=== PATIENT | female | born 1950 | race Caucasian/White ===

== ENCOUNTER 2024-04-27 21:18 | Emergency (ER) | payer MEDICARE, OTHER | END 2024-04-27 23:34 | disposition left against medical advice (07) | LOC: ER 21:26 | DX: R51.9 Headache, unspecified (principal); R03.0 Elevated blood-pressure reading, without diagnosis of hypertension; Z53.21 Procedure and treatment not carried out due to patient leaving prior to being seen by health care provider ==

== ENCOUNTER 2024-05-08 07:55 | Emergency (ER) | payer MEDICARE, OTHER ==
[~2024-05-08] VITALS: Ht 165.1 cm; Wt 72.6 kg
[2024-05-08 08:05] VITALS: TEMP 98.1
[2024-05-08] MEDS: IV NS 0.9% 1,000 ML BAG IV ONE (08:30)
[2024-05-08 08:49] LABS: BASOPHILS % (AUTO) 0.3 % (0.0-2.0); EOSINOPHILS # (AUTO) 0.1 K/uL (0.0-0.7); EOSINOPHILS % (AUTO) 1.6 % (0.0-6.0); HEMATOCRIT 34 % (33-45); HEMOGLOBIN 11.4 g/dL (11.5-14.8); LYMPHOCYTES # (AUTO) 1.6 K/uL (0.8-4.8); LYMPHOCYTES % (AUTO) 29.8 % (20.0-44.0); MEAN CORPUSCULAR HEMOGLOBIN 28 PG (26.0-33.0); MEAN CORPUSCULAR HGB CONC 33 g/dl (31.0-36.0); MEAN CORPUSCULAR VOLUME 84 fL (82-100); MONOCYTES # (AUTO) 0.4 K/uL (0.1-1.30); MONOCYTES % (AUTO) 7.3 % (2.0-12.0); NEUTROPHILS # (AUTO) 3.2 K/uL (1.8-8.9); PLATELET COUNT (AUTO) 180 K/uL (150-450); RED BLOOD CELL COUNT(AUTO) 4.04 MIL/uL (4.0-5.2); RED CELL DISTRIBUTION WIDTH 14.5 % (11.5-15.0); WHITE BLOOD COUNT (AUTO) 5.2 K/uL (4.3-11.0)
[2024-05-08 09:02] LABS: CALCIUM, SERUM 9.2 mg/dL (8.5-10.1); CARBON DIOXIDE 29 mmol/L (21-32); CHLORIDE 106 mmol/L (98-107); CREATININE 0.7 mg/dL (0.6-1.3); GLUCOSE 154 mg/dL (74-106); POTASSIUM 3.8 mmol/L (3.5-5.1); SODIUM SERUM 143 mmol/L (136-145); UREA NITROGEN, BLOOD 8 mg/dL (7-18)
[2024-05-08 09:11] LABS: ALANINE AMINOTRANSFERASE 31 U/L (12-78); ALBUMIN 3.9 g/dL (3.4-5.0); ALKALINE PHOSPHATASE 71 U/L (46-116); ASPARTATE AMINOTRANSFERASE 20 U/L (15-37); BILIRUBIN,DIRECT 0.1 mg/dL (0.0-0.2); BILIRUBIN,TOTAL 0.3 mg/dL (0.2-1.0); LIPASE 36 U/L (16-77); TOTAL PROTEIN, SERUM 7.7 g/dL (6.4-8.2)
[2024-05-08] MEDS ORDERED: LIDOCAINE VISCOUS 2% UD 15 ML UDC ONE (09:13)
[2024-05-08] MEDS ORDERED: ONDANSETRON HCL/PF 4 MG/2 ML VIAL ONE (09:13)
[2024-05-08] MEDS ORDERED: MORPHINE SULFATE INJ 4 MG/ML DISP.SYRIN ONE (09:13)
[2024-05-08] MEDS ORDERED: MAG HYDROX/AL HYDROX/SIMETH 30 ML UDC ONE (09:13)
[2024-05-08] MEDS ORDERED: FAMOTIDINE/PF INJ 20 MG/2 ML VIAL IV ONE (09:14)
[2024-05-08] MEDS: FAMOTIDINE/PF INJ 20 MG/2 ML VIAL IV ONE (09:30)
[2024-05-08] MEDS: MAG HYDROX/AL HYDROX/SIMETH 30 ML UDC PO ONE (09:30)
[2024-05-08] MEDS: ONDANSETRON HCL/PF 4 MG/2 ML VIAL IVP ONE (09:30)
[2024-05-08] MEDS: MORPHINE SULFATE INJ 2 MG/ML DISP.SYRIN IV ONE (09:30)
[2024-05-08] MEDS: LIDOCAINE VISCOUS 2% UD 15 ML UDC MM ONE (09:30)
[2024-05-08 10:29] LABS: APPEARANCE,URINE CLEAR (CLEAR); BILIRUBIN,URINE NEGATIVE (NEGATIVE); BLOOD, URINE NEGATIVE Ery/uL (NEGATIVE); COLOR,URINE YELLOW (YELLOW); KETONES,URINE NEGATIVE (NEGATIVE); LEUKOCYTE ESTERASE ,URINE NEGATIVE (NEGATIVE); NITRITE, URINE NEGATIVE (NEGATIVE); PROTEIN,URINE NEGATIVE (NEGATIVE); UGLUCOSE NEGATIVE (NEGATIVE); UROBILINOGEN,URINE 0.2 EU/dL (0.2)
[2024-05-08] MEDS ORDERED: ONDA4TAB5 PO (12:47)
[2024-05-08] MEDS ORDERED: FAMO-131 PO (12:47)
[2024-05-08 13:58] VITALS: BP 108/65; O2SAT 99
== END 2024-05-08 13:40 | disposition home or self-care (01) ==
LOC: ER 08:01
DX: K80.20 Calculus of gallbladder without cholecystitis without obstruction (principal); R10.13 Epigastric pain; R10.11 Right upper quadrant pain; R11.0 Nausea; Z87.19 Personal history of other diseases of the digestive system; Z88.6 Allergy status to analgesic agent; Z88.8 Allergy status to other drugs, medicaments and biological substances
CPT/HCPCS: 99285; 74176; 96374; 76705; 96375; 96361; 93005; 85025; 80048; 83690; 80076; 81003; 36415; J2270; J3490; J2405; J7030

== ENCOUNTER 2024-06-02 18:45 | Emergency (ER) | payer MEDICARE, OTHER ==
[~2024-06-02] VITALS: Ht 162.6 cm; Wt 72.6 kg
[~2024-06-02 18:45] MED LIST: FAMO-131 PO; ONDA4TAB5 PO
[2024-06-02 19:57] LABS: BASOPHILS % (AUTO) 0.2 % (0.0-2.0); EOSINOPHILS # (AUTO) 0.1 K/uL (0.0-0.7); HEMATOCRIT 34 % (33-45); HEMOGLOBIN 11.6 g/dL (11.5-14.8); LYMPHOCYTES # (AUTO) 2.5 K/uL (0.8-4.8); LYMPHOCYTES % (AUTO) 33.3 % (20.0-44.0); MEAN CORPUSCULAR HEMOGLOBIN 29 PG (26.0-33.0); MEAN CORPUSCULAR HGB CONC 34 g/dl (31.0-36.0); MEAN CORPUSCULAR VOLUME 85 fL (82-100); MONOCYTES # (AUTO) 0.6 K/uL (0.1-1.30); MONOCYTES % (AUTO) 7.8 % (2.0-12.0); NEUTROPHILS # (AUTO) 4.3 K/uL (1.8-8.9); NEUTROPHILS % (AUTO) 57.7 % (43.0-81.0); PLATELET COUNT (AUTO) 201 K/uL (150-450); RED BLOOD CELL COUNT(AUTO) 4.01 MIL/uL (4.0-5.2); RED CELL DISTRIBUTION WIDTH 14.2 % (11.5-15.0); WHITE BLOOD COUNT (AUTO) 7.5 K/uL (4.3-11.0)
[2024-06-02 20:09] LABS: CALCIUM, SERUM 9.7 mg/dL (8.5-10.1); CARBON DIOXIDE 31 mmol/L (21-32); CHLORIDE 102 mmol/L (98-107); CREATININE 0.7 mg/dL (0.6-1.3); GLUCOSE 100 mg/dL (74-106); SODIUM SERUM 139 mmol/L (136-145); UREA NITROGEN, BLOOD 8 mg/dL (7-18)
[2024-06-02 20:14] LABS: ALANINE AMINOTRANSFERASE 29 U/L (12-78); ALBUMIN 4.3 g/dL (3.4-5.0); ALKALINE PHOSPHATASE 79 U/L (46-116); ASPARTATE AMINOTRANSFERASE 19 U/L (15-37); BILIRUBIN,DIRECT 0.1 mg/dL (0.0-0.2); BILIRUBIN,TOTAL 0.3 mg/dL (0.2-1.0); LIPASE 58 U/L (16-77); TOTAL PROTEIN, SERUM 8.1 g/dL (6.4-8.2)
[2024-06-02] MEDS ORDERED: HYDR-4303 PO (20:38)
[2024-06-02] MEDS ORDERED: MORPHINE SULFATE INJ 4 MG/ML DISP.SYRIN ONE (20:44)
[2024-06-02] MEDS: MORPHINE SULFATE INJ 2 MG/ML DISP.SYRIN IV ONE (20:51)
[2024-06-02] MEDS: ONDANSETRON HCL/PF 4 MG/2 ML VIAL IV ONE (20:52)
[2024-06-02 21:01] LABS: APPEARANCE,URINE Clear (CLEAR); BILIRUBIN,URINE Negative (NEGATIVE); BLOOD, URINE Negative Ery/uL (NEGATIVE); COLOR,URINE LIGHT YELLOW (YELLOW); KETONES,URINE Negative (NEGATIVE); LEUKOCYTE ESTERASE ,URINE Negative (NEGATIVE); NITRITE, URINE Negative (NEGATIVE); PH,URINE 8.5 (5.0-8.0); PROTEIN,URINE Negative (NEGATIVE); UGLUCOSE Negative (NEGATIVE); UROBILINOGEN,URINE 0.2 EU/dL (0.2)
[2024-06-02 21:58] VITALS: BP 135/62; TEMP 98; O2SAT 99
== END 2024-06-02 21:58 | disposition home or self-care (01) ==
LOC: ER 18:48
DX: R10.11 Right upper quadrant pain (principal); R19.7 Diarrhea, unspecified; R11.2 Nausea with vomiting, unspecified; Z87.19 Personal history of other diseases of the digestive system; Z88.6 Allergy status to analgesic agent
CPT/HCPCS: 99285; 74176; 96374; 76705; 96375; 85025; 80048; 83690; 80076; 81003; 36415; J2270; J2405

== ENCOUNTER 2024-08-07 14:20 | Emergency (ER) | payer MEDICARE, OTHER ==
[~2024-08-07] VITALS: Ht 165.1 cm; Wt 74.8 kg
[~2024-08-07 14:20] MED LIST changes: +HYDR-4303 PO
[2024-08-07] MEDS ORDERED: METOCLOPRAMIDE HCL 10 MG/2 ML VIAL ONE (15:14)
[2024-08-07] MEDS ORDERED: PANTOPRAZOLE 40 MG VIAL ONE (15:14)
[2024-08-07] MEDS ORDERED: LACTULOSE 10 G/15 ML UDC (PYXIS) ONE (15:14)
[2024-08-07 15:28] LABS: BASOPHILS % (AUTO) 0.1 % (0.0-2.0); EOSINOPHILS % (AUTO) 0.2 % (0.0-6.0); HEMATOCRIT 33 % (33-45); HEMOGLOBIN 11.2 g/dL (11.5-14.8); LYMPHOCYTES # (AUTO) 0.6 K/uL (0.8-4.8); LYMPHOCYTES % (AUTO) 6.8 % (20.0-44.0); MEAN CORPUSCULAR HEMOGLOBIN 29 PG (26.0-33.0); MEAN CORPUSCULAR HGB CONC 34 g/dl (31.0-36.0); MEAN CORPUSCULAR VOLUME 84 fL (82-100); MONOCYTES # (AUTO) 0.8 K/uL (0.1-1.30); MONOCYTES % (AUTO) 8.3 % (2.0-12.0); NEUTROPHILS # (AUTO) 7.7 K/uL (1.8-8.9); NEUTROPHILS % (AUTO) 84.6 % (43.0-81.0); PLATELET COUNT (AUTO) 217 K/uL (150-450); RED BLOOD CELL COUNT(AUTO) 3.92 MIL/uL (4.0-5.2); RED CELL DISTRIBUTION WIDTH 13.5 % (11.5-15.0); WHITE BLOOD COUNT (AUTO) 9.1 K/uL (4.3-11.0)
[2024-08-07] MEDS: LACTULOSE 10 G/15 ML UDC (PYXIS) PO ONE (15:34)
[2024-08-07] MEDS: IV NS 0.9% 1,000 ML BAG IV ONE (15:34)
[2024-08-07] MEDS: METOCLOPRAMIDE HCL 10 MG/2 ML VIAL IV ONE (15:34)
[2024-08-07] MEDS: PANTOPRAZOLE 40 MG VIAL IV ONE (15:34)
[2024-08-07 15:37] LABS: CALCIUM, SERUM 9.6 mg/dL (8.5-10.1); CREATININE 0.7 mg/dL (0.6-1.3)
[2024-08-07 15:43] LABS: ALBUMIN 3.9 g/dL (3.4-5.0); BILIRUBIN,DIRECT 0.1 mg/dL (0.0-0.2); BILIRUBIN,TOTAL 0.3 mg/dL (0.2-1.0); TOTAL PROTEIN, SERUM 8.2 g/dL (6.4-8.2)
[2024-08-07 16:20] LABS: APPEARANCE,URINE CLEAR (CLEAR); BILIRUBIN,URINE NEGATIVE (NEGATIVE); BLOOD, URINE 1+ Ery/uL (NEGATIVE); COLOR,URINE YELLOW (YELLOW); KETONES,URINE NEGATIVE (NEGATIVE); LEUKOCYTE ESTERASE ,URINE NEGATIVE (NEGATIVE); NITRITE, URINE NEGATIVE (NEGATIVE); PROTEIN,URINE TRACE mg/dl (NEGATIVE); UGLUCOSE NEGATIVE (NEGATIVE); UROBILINOGEN,URINE 0.2 EU/dL (0.2)
[2024-08-07 16:31] LABS: BACTERIA,URINE Rare /HPF (None Seen); MUCUS,URINE Moderate /LPF (None Seen)
[2024-08-07 16:32] LABS: SQUAMOUS EPITHELIAL CELL,UR Few /HPF (None Seen)
[2024-08-07 16:33] LABS: ADD URINE CULTURE NO; RBC,URINE 0-2 /HPF (0-2); WBC,URINE 0-2 /HPF (0-3)
[2024-08-07] MEDS ORDERED: LACT10SO68 PO (16:39)
[2024-08-07 16:51] VITALS: BP 140/72; TEMP 98; O2SAT 99
== END 2024-08-07 16:56 | disposition home or self-care (01) ==
LOC: ER 14:20
DX: G89.18 Other acute postprocedural pain (principal); R10.84 Generalized abdominal pain; K59.00 Constipation, unspecified; Z87.19 Personal history of other diseases of the digestive system; Z88.6 Allergy status to analgesic agent; Z90.49 Acquired absence of other specified parts of digestive tract
CPT/HCPCS: 99285; 74176; 96374; 96361; 96375; 85025; 80048; 80076; 81001; 36415; J2765; J7030; J2470

== ENCOUNTER 2024-10-02 00:24 | Emergency (ER) | payer MEDICARE, OTHER ==
[~2024-10-02] VITALS: Ht 165.1 cm; Wt 74.8 kg
[~2024-10-02 00:24] MED LIST changes: +LACT10SO68 PO
[2024-10-02] MEDS ORDERED: ONDANSETRON HCL/PF 4 MG/2 ML VIAL ONE (02:38)
[2024-10-02] MEDS ORDERED: MORPHINE SULFATE INJ 2 MG/ML DISP.SYRIN ONE (02:38)
[2024-10-02] MEDS: MORPHINE SULFATE INJ 2 MG/ML DISP.SYRIN IV ONE (02:39)
[2024-10-02] MEDS: ONDANSETRON HCL/PF 4 MG/2 ML VIAL IVP ONE (02:39)
[2024-10-02] MEDS: IV NS 0.9% 500 ML BAG IV ONE (02:39)
[2024-10-02 02:44] LABS: BASOPHILS % (AUTO) 0.1 % (0.0-2.0); EOSINOPHILS # (AUTO) 0.1 K/uL (0.0-0.7); EOSINOPHILS % (AUTO) 1.3 % (0.0-6.0); HEMATOCRIT 32 % (33-45); LYMPHOCYTES # (AUTO) 1.9 K/uL (0.8-4.8); LYMPHOCYTES % (AUTO) 30.4 % (20.0-44.0); MEAN CORPUSCULAR HEMOGLOBIN 29 PG (26.0-33.0); MEAN CORPUSCULAR HGB CONC 34 g/dl (31.0-36.0); MEAN CORPUSCULAR VOLUME 83 fL (82-100); MONOCYTES # (AUTO) 0.5 K/uL (0.1-1.30); MONOCYTES % (AUTO) 8.8 % (2.0-12.0); NEUTROPHILS # (AUTO) 3.7 K/uL (1.8-8.9); NEUTROPHILS % (AUTO) 59.4 % (43.0-81.0); PLATELET COUNT (AUTO) 187 K/uL (150-450); RED BLOOD CELL COUNT(AUTO) 3.87 MIL/uL (4.0-5.2); WHITE BLOOD COUNT (AUTO) 6.2 K/uL (4.3-11.0)
[2024-10-02 02:56] LABS: CALCIUM, SERUM 9.5 mg/dL (8.5-10.1); CARBON DIOXIDE 31 mmol/L (21-32); CHLORIDE 105 mmol/L (98-107); CREATININE 0.7 mg/dL (0.6-1.3); GLUCOSE 109 mg/dL (74-106); POTASSIUM 3.7 mmol/L (3.5-5.1); SODIUM SERUM 142 mmol/L (136-145); UREA NITROGEN, BLOOD 12 mg/dL (7-18)
[2024-10-02 03:01] LABS: ALANINE AMINOTRANSFERASE 72 U/L (12-78); ALBUMIN 4.2 g/dL (3.4-5.0); ALKALINE PHOSPHATASE 96 U/L (46-116); ASPARTATE AMINOTRANSFERASE 77 U/L (15-37); BILIRUBIN,DIRECT 0.1 mg/dL (0.0-0.2); BILIRUBIN,TOTAL 0.3 mg/dL (0.2-1.0); LIPASE 67 U/L (16-77); TOTAL PROTEIN, SERUM 7.7 g/dL (6.4-8.2)
[2024-10-02 03:24] LABS: APPEARANCE,URINE CLEAR (CLEAR); BILIRUBIN,URINE NEGATIVE (NEGATIVE); BLOOD, URINE NEGATIVE Ery/uL (NEGATIVE); COLOR,URINE YELLOW (YELLOW); KETONES,URINE NEGATIVE (NEGATIVE); LEUKOCYTE ESTERASE ,URINE NEGATIVE (NEGATIVE); NITRITE, URINE NEGATIVE (NEGATIVE); PROTEIN,URINE NEGATIVE (NEGATIVE); UGLUCOSE NEGATIVE (NEGATIVE); UROBILINOGEN,URINE 0.2 EU/dL (0.2)
[2024-10-02 04:48] VITALS: BP 130/77; TEMP 98.3; O2SAT 98
== END 2024-10-02 04:55 | disposition home or self-care (01) ==
LOC: ER 00:25
DX: R10.11 Right upper quadrant pain (principal); R11.2 Nausea with vomiting, unspecified; Z87.19 Personal history of other diseases of the digestive system; Z88.6 Allergy status to analgesic agent
CPT/HCPCS: 99285; 74176; 96374; 71045; 96375; 93005; 85025; 80048; 83690; 80076; 81003; 36415; 84484; J2405; J7040; J2270

== ENCOUNTER 2024-11-19 19:30 | Emergency (ER) | payer MEDICARE, OTHER ==
[~2024-11-19] VITALS: Ht 157.5 cm; Wt 68.0 kg
[2024-11-19] MEDS: IV NS 0.9% 1,000 ML BAG IV ONE (22:30)
[2024-11-19 22:34] LABS: APPEARANCE,URINE CLEAR (CLEAR); BILIRUBIN,URINE NEGATIVE (NEGATIVE); BLOOD, URINE TRACE-INTA Ery/uL (NEGATIVE); COLOR,URINE YELLOW (YELLOW); KETONES,URINE NEGATIVE (NEGATIVE); LEUKOCYTE ESTERASE ,URINE NEGATIVE (NEGATIVE); NITRITE, URINE NEGATIVE (NEGATIVE); PROTEIN,URINE NEGATIVE (NEGATIVE); UGLUCOSE NEGATIVE (NEGATIVE); UROBILINOGEN,URINE 0.2 EU/dL (0.2)
[2024-11-19 22:41] LABS: BASOPHILS % (AUTO) 0.2 % (0.0-2.0); EOSINOPHILS # (AUTO) 0.1 K/uL (0.0-0.7); HEMATOCRIT 35 % (33-45); HEMOGLOBIN 11.8 g/dL (11.5-14.8); LYMPHOCYTES # (AUTO) 2.1 K/uL (0.8-4.8); LYMPHOCYTES % (AUTO) 35.3 % (20.0-44.0); MEAN CORPUSCULAR HEMOGLOBIN 28 PG (26.0-33.0); MEAN CORPUSCULAR HGB CONC 34 g/dl (31.0-36.0); MEAN CORPUSCULAR VOLUME 82 fL (82-100); MONOCYTES # (AUTO) 0.4 K/uL (0.1-1.30); MONOCYTES % (AUTO) 6.4 % (2.0-12.0); NEUTROPHILS # (AUTO) 3.4 K/uL (1.8-8.9); NEUTROPHILS % (AUTO) 57.1 % (43.0-81.0); PLATELET COUNT (AUTO) 183 K/uL (150-450); RED BLOOD CELL COUNT(AUTO) 4.27 MIL/uL (4.0-5.2); RED CELL DISTRIBUTION WIDTH 14.2 % (11.5-15.0)
[2024-11-19] MEDS ORDERED: ONDANSETRON HCL/PF 4 MG/2 ML VIAL ONE (22:41)
[2024-11-19] MEDS ORDERED: MORPHINE SULFATE INJ 4 MG/ML DISP.SYRIN ONE (22:41)
[2024-11-19] MEDS: MORPHINE SULFATE INJ 2 MG/ML DISP.SYRIN IV ONE (22:45)
[2024-11-19] MEDS: ONDANSETRON HCL/PF 4 MG/2 ML VIAL IVP ONE (22:45)
[2024-11-19 22:47] LABS: CALCIUM, SERUM 9.9 mg/dL (8.5-10.1); CREATININE 0.7 mg/dL (0.6-1.3); POTASSIUM 3.6 mmol/L (3.5-5.1)
[2024-11-19 22:53] LABS: ALBUMIN 4.2 g/dL (3.4-5.0); BILIRUBIN,DIRECT 0.1 mg/dL (0.0-0.2); BILIRUBIN,TOTAL 0.3 mg/dL (0.2-1.0); TOTAL PROTEIN, SERUM 8.1 g/dL (6.4-8.2)
[2024-11-19 23:00] LABS: ADD URINE CULTURE NO; BACTERIA,URINE Few /HPF (None Seen); SQUAMOUS EPITHELIAL CELL,UR Few /HPF (None Seen); WBC,URINE 0-2 /HPF (0-3)
[2024-11-20] MEDS ORDERED: IOHEXOL-300 100 ML VIAL IV ONE (00:12)
[2024-11-20] MEDS ORDERED: CT SWABBABLE VALVE TRANS SET 1 EA INFUS.SET MC ONE (00:12)
[2024-11-20] MEDS ORDERED: IV NS 0.9% 250 ML IV ONE (00:12)
[2024-11-20] MEDS ORDERED: TRAM50TA2 PO (02:06)
[2024-11-20] MEDS ORDERED: ONDA4TAB11 PO (02:06)
[2024-11-20 02:18] VITALS: BP 141/71; TEMP 98.4; O2SAT 98
== END 2024-11-20 02:18 | disposition home or self-care (01) ==
LOC: ER 19:32
DX: R10.11 Right upper quadrant pain (principal); R11.0 Nausea; Z87.19 Personal history of other diseases of the digestive system; Z88.6 Allergy status to analgesic agent; Z90.49 Acquired absence of other specified parts of digestive tract
CPT/HCPCS: 99285; 74177; 96374; 76705; 96361; 96375; 85025; 80048; 83690; 80076; 81001; 36415; J2270; J2405; J7030; J7050; Q9967

== ENCOUNTER 2025-01-04 17:22 | Emergency (ER) | payer MEDICARE, OTHER ==
[~2025-01-04] VITALS: Ht 160 cm; Wt 72.6 kg
[~2025-01-04 17:22] MED LIST changes: +ONDA4TAB11 PO; +TRAM50TA2 PO
[2025-01-04] MEDS ORDERED: KETOROLAC TROMETHAMINE INJ 30 MG/ML VIAL ONE (19:56)
[2025-01-04] MEDS ORDERED: ACETAMINOPHEN ES 500 MG TABLET ONE (19:56)
[2025-01-04] MEDS ORDERED: ACETAMINOPHEN ES 500 MG TABLET PO ONE (20:00)
[2025-01-04] MEDS: HYDROCODONE/APAP 5/325MG TABLET PO ONE (20:03)
[2025-01-04] MEDS: KETOROLAC TROMETHAMINE INJ 30 MG/ML VIAL IM ONE (20:03)
[2025-01-04 20:19] LABS: APPEARANCE,URINE CLEAR (CLEAR); BILIRUBIN,URINE Negative (NEGATIVE); BLOOD, URINE Trace-lysed Ery/uL (NEGATIVE); COLOR,URINE YELLOW (YELLOW); KETONES,URINE Negative (NEGATIVE); LEUKOCYTE ESTERASE ,URINE Negative (NEGATIVE); PROTEIN,URINE Negative (NEGATIVE); UGLUCOSE Negative (NEGATIVE); UROBILINOGEN,URINE 0.2 EU/dL (0.2)
[2025-01-04 20:20] LABS: NITRITE, URINE NEGATIVE (NEGATIVE)
[2025-01-04 20:22] LABS: ADD URINE CULTURE NO; BACTERIA,URINE Few /HPF (None Seen); RBC,URINE 0-2 /HPF (0-2); SQUAMOUS EPITHELIAL CELL,UR Few /HPF (None Seen); WBC,URINE 0-2 /HPF (0-3)
[2025-01-04 20:53] LABS: BASOPHILS % (AUTO) 0.2 % (0.0-2.0); EOSINOPHILS # (AUTO) 0.1 K/uL (0.0-0.7); EOSINOPHILS % (AUTO) 1.1 % (0.0-6.0); HEMATOCRIT 34 % (33-45); HEMOGLOBIN 11.4 g/dL (11.5-14.8); LYMPHOCYTES # (AUTO) 2.2 K/uL (0.8-4.8); LYMPHOCYTES % (AUTO) 32.3 % (20.0-44.0); MEAN CORPUSCULAR HEMOGLOBIN 28 PG (26.0-33.0); MEAN CORPUSCULAR HGB CONC 33 g/dl (31.0-36.0); MEAN CORPUSCULAR VOLUME 84 fL (82-100); MONOCYTES # (AUTO) 0.5 K/uL (0.1-1.30); MONOCYTES % (AUTO) 7.2 % (2.0-12.0); NEUTROPHILS # (AUTO) 4.1 K/uL (1.8-8.9); NEUTROPHILS % (AUTO) 59.2 % (43.0-81.0); PLATELET COUNT (AUTO) 183 K/uL (150-450); RED BLOOD CELL COUNT(AUTO) 4.08 MIL/uL (4.0-5.2); RED CELL DISTRIBUTION WIDTH 14.2 % (11.5-15.0); WHITE BLOOD COUNT (AUTO) 6.8 K/uL (4.3-11.0)
[2025-01-04] MEDS ORDERED: HYDROCODONE/APAP 5/325MG TABLET ONE (20:53)
[2025-01-04 21:05] LABS: CALCIUM, SERUM 9.5 mg/dL (8.5-10.1); CARBON DIOXIDE 27 mmol/L (21-32); CHLORIDE 104 mmol/L (98-107); CREATININE 0.8 mg/dL (0.6-1.3); GLUCOSE 120 mg/dL (74-106); POTASSIUM 4.1 mmol/L (3.5-5.1); SODIUM SERUM 138 mmol/L (136-145); UREA NITROGEN, BLOOD 11 mg/dL (7-18)
[2025-01-04 21:10] LABS: ALANINE AMINOTRANSFERASE 38 U/L (12-78); ALBUMIN 3.9 g/dL (3.4-5.0); ALKALINE PHOSPHATASE 90 U/L (46-116); ASPARTATE AMINOTRANSFERASE 21 U/L (15-37); BILIRUBIN,DIRECT 0.1 mg/dL (0.0-0.2); BILIRUBIN,TOTAL 0.3 mg/dL (0.2-1.0); LIPASE 51 U/L (16-77); TOTAL PROTEIN, SERUM 7.9 g/dL (6.4-8.2)
[2025-01-04] MEDS ORDERED: GABA-532 PO (21:48)
[2025-01-04 22:12] VITALS: BP 145/78; TEMP 98.4; O2SAT 97
== END 2025-01-04 22:12 | disposition home or self-care (01) ==
LOC: ER 17:37
DX: M54.50 Low back pain, unspecified (principal); Z87.19 Personal history of other diseases of the digestive system; Z88.6 Allergy status to analgesic agent; Z60.2 Problems related to living alone; Z79.899 Other long term (current) drug therapy
CPT/HCPCS: 99285; 72131; 96372; 74176; 85025; 80048; 83690; 80076; 81001; 36415; J1885

== ENCOUNTER 2025-04-12 04:34 | Emergency (ER) | payer MEDICARE, OTHER ==
[~2025-04-12] VITALS: Ht 162.6 cm; Wt 78.0 kg
[~2025-04-12 04:34] MED LIST changes: +GABA-532 PO
[2025-04-12 05:09] LABS: PLATELET COUNT (AUTO) 195 K/uL (150-450); RED BLOOD CELL COUNT(AUTO) 4.17 MIL/uL (4.0-5.2); RED CELL DISTRIBUTION WIDTH 14.0 % (11.5-15.0); WHITE BLOOD COUNT (AUTO) 5.4 K/uL (4.3-11.0)
[2025-04-12] MEDS ORDERED: IV NS 0.9% 250 ML IV ONE (05:11)
[2025-04-12] MEDS ORDERED: IOHEXOL-300 100 ML VIAL IV ONE (05:11)
[2025-04-12] MEDS ORDERED: CT SWABBABLE VALVE TRANS SET 1 EA INFUS.SET MC ONE (05:11)
[2025-04-12 05:19] LABS: CALCIUM, SERUM 10.1 mg/dL (8.5-10.1); CREATININE 1.0 mg/dL (0.6-1.3); SODIUM SERUM 142 mmol/L (136-145); UREA NITROGEN, BLOOD 12 mg/dL (7-18)
[2025-04-12 05:24] LABS: ASPARTATE AMINOTRANSFERASE 15 U/L (15-37); TOTAL PROTEIN, SERUM 8.0 g/dL (6.4-8.2)
[2025-04-12] MEDS ORDERED: MORPHINE SULFATE INJ 4 MG/ML DISP.SYRIN ONE (05:25)
[2025-04-12] MEDS ORDERED: KETOROLAC TROMETHAMINE 15 MG/ML VIAL ONE (05:25)
[2025-04-12] MEDS ORDERED: ONDANSETRON HCL/PF 4 MG/2 ML VIAL ONE (05:25)
[2025-04-12] MEDS: MORPHINE SULFATE INJ 2 MG/ML DISP.SYRIN IV ONE (05:26)
[2025-04-12] MEDS: ONDANSETRON HCL/PF 4 MG/2 ML VIAL IVP ONE (05:26)
[2025-04-12] MEDS: IV NS 0.9% 1,000 ML BAG IV ONE (05:26)
[2025-04-12] MEDS: KETOROLAC TROMETHAMINE 15 MG/ML VIAL IV ONE (05:26)
[2025-04-12 05:31] LABS: LACTIC ACID 2.3 mmol/L (0.4-2.0)
[2025-04-12 05:55] LABS: APPEARANCE,URINE CLEAR (CLEAR); BLOOD, URINE TRACE-INTA Ery/uL (NEGATIVE); LEUKOCYTE ESTERASE ,URINE NEGATIVE (NEGATIVE); NITRITE, URINE NEGATIVE (NEGATIVE); UGLUCOSE NEGATIVE (NEGATIVE)
[2025-04-12 06:06] LABS: ADD URINE CULTURE NO; SQUAMOUS EPITHELIAL CELL,UR Rare /HPF (None Seen)
[2025-04-12] MEDS ORDERED: GLYC-30 RC (06:14)
[2025-04-12] MEDS ORDERED: DOCU-141 PO (06:14)
[2025-04-12 06:24] VITALS: BP 122/70; TEMP 98.7; O2SAT 98
== END 2025-04-12 06:25 | disposition home or self-care (01) ==
LOC: ER 04:38
DX: R10.11 Right upper quadrant pain (principal); K08.89 Other specified disorders of teeth and supporting structures; R11.0 Nausea; Z79.899 Other long term (current) drug therapy; Z87.19 Personal history of other diseases of the digestive system; Z88.6 Allergy status to analgesic agent; Z90.49 Acquired absence of other specified parts of digestive tract; Z60.2 Problems related to living alone
CPT/HCPCS: 99285; 74177; 96374; 96375; 96361; 93005; 85025; 80048; 83605; 83690; 80076; 81001; 36415; J1885; J2270; J2405; J7030; J7050; Q9967

== ENCOUNTER 2025-08-14 17:33 | Emergency (ER) | payer MEDICARE, OTHER ==
[~2025-08-14] VITALS: Ht 157.5 cm; Wt 72.6 kg
[~2025-08-14 17:33] MED LIST changes: +DOCU-141 PO; +GLYC-30 RC
[2025-08-14 18:56] LABS: APPEARANCE,URINE CLEAR (CLEAR); BLOOD, URINE 1+ Ery/uL (NEGATIVE); LEUKOCYTE ESTERASE ,URINE NEGATIVE (NEGATIVE); NITRITE, URINE NEGATIVE (NEGATIVE); UGLUCOSE NEGATIVE (NEGATIVE)
[2025-08-14] MEDS ORDERED: MORPHINE SULFATE INJ 4 MG/ML DISP.SYRIN ONE (19:06)
[2025-08-14] MEDS ORDERED: ONDANSETRON HCL/PF 4 MG/2 ML VIAL ONE (19:06)
[2025-08-14 19:07] LABS: ADD URINE CULTURE YES; SQUAMOUS EPITHELIAL CELL,UR Few /HPF (None Seen)
[2025-08-14] MEDS: MORPHINE SULFATE INJ 2 MG/ML DISP.SYRIN IV ONE (19:10)
[2025-08-14] MEDS: ONDANSETRON HCL/PF - ER 4 MG/2 ML VIAL IV ONE (19:11)
[2025-08-14 19:12] LABS: PLATELET COUNT (AUTO) 200 K/uL (150-450); RED BLOOD CELL COUNT(AUTO) 4.28 MIL/uL (4.0-5.2); RED CELL DISTRIBUTION WIDTH 13.9 % (11.5-15.0); WHITE BLOOD COUNT (AUTO) 6.6 K/uL (4.3-11.0)
[2025-08-14 19:21] LABS: CALCIUM, SERUM 9.2 mg/dL (8.5-10.1); CREATININE 0.6 mg/dL (0.6-1.3); SODIUM SERUM 139 mmol/L (136-145); UREA NITROGEN, BLOOD 12 mg/dL (7-18)
[2025-08-14 19:26] LABS: ASPARTATE AMINOTRANSFERASE 21 U/L (15-37); TOTAL PROTEIN, SERUM 8.2 g/dL (6.4-8.2)
[2025-08-14] MEDS ORDERED: FAMOTIDINE/PF INJ 20 MG/2 ML VIAL IV ONE (20:32)
[2025-08-14] MEDS: FAMOTIDINE/PF INJ 20 MG/2 ML VIAL IV ONE (20:38)
[2025-08-14] MEDS ORDERED: AMOX-430 PO (22:10)
[2025-08-14] MEDS ORDERED: FAMO-131 PO (22:10)
[2025-08-14] MEDS ORDERED: AMOX/CLAVULANATE 875 MG TABLET ONE (22:19)
[2025-08-14] MEDS: AMOX/CLAVULANATE 875 MG TABLET PO ONE (22:22)
[2025-08-14 22:47] VITALS: BP 124/65; TEMP 98; O2SAT 98
== END 2025-08-14 22:48 | disposition admitted as inpatient to this hospital (09) ==
LOC: ER 17:33
DX: R10.11 Right upper quadrant pain (principal); Z88.6 Allergy status to analgesic agent; Z87.19 Personal history of other diseases of the digestive system; Z90.49 Acquired absence of other specified parts of digestive tract; Z79.899 Other long term (current) drug therapy; Z60.2 Problems related to living alone
CPT/HCPCS: 99285; 74176; 96374; 96375; 93005; 85025; 80048; 87086; 83690; 80076; 81001; 36415; 84484 ×2; J2270; J1308; J2405 ×2